=== PATIENT | female | born 2000 | race Caucasian/White ===

== ENCOUNTER 2018-01-21 15:14 | Emergency (ER) | payer BC ==
[2018-01-21 15:25] VITALS: BP 123/82; PULSE 68; RESP 18; TEMP 98.4; O2SAT 99; BMI 28.2
--- NOTE | 2018-01-21 15:56 | C.PDOC ---
History Of Present Illness 17-year-old female, presents to the emergency department with complaints of ankle pain. Patient states she missed a step and injured right lateral ankle at 5:30 AM today. Denies loc, hitting head or neck, nausea or vomiting. No other complaints at this time. Time Seen by Provider: 01/21/18 15:35 Chief Complaint (Nursing): Lower Extremity Problem/Injury History Per: Patient History/Exam Limitations: no limitations Onset/Duration Of Symptoms: Hrs Current Symptoms Are (Timing): Still Present Severity: Moderate Past Medical History Reviewed: Historical Data, Nursing Documentation, Vital Signs Vital Signs: Last Vital Signs Temp 98.4 F 01/21/18 15:24 Pulse 68 01/21/18 15:24 Resp 18 01/21/18 15:24 BP 123/82 01/21/18 15:24 Pulse Ox 99 01/21/18 16:27 Family History: States: No Known Family Hx - Social History Hx Tobacco Use: No Hx Alcohol Use: No Hx Substance Use: No - Immunization History Hx Tetanus Toxoid Vaccination: No Hx Influenza Vaccination: No Hx Pneumococcal Vaccination: No Review Of Systems Constitutional: Negative for: Fever Gastrointestinal: Negative for: Nausea, Vomiting Musculoskeletal: Positive for: Foot Pain (right ankle) Neurological: Negative for: Weakness, Numbness Physical Exam - Physical Exam Appears: Well, No Acute Distress Skin: Normal Color, Warm, Dry, No Rash Head: Atraumatic, Normacephalic Eye(s): bilateral: Normal Inspection Nose: Normal Oral Mucosa: Moist Lips: Normal Appearing Neck: Normal ROM Respiratory: No Accessory Muscle Use (no acute respiratory distress) Extremity: Tenderness, No Pedal Edema, No Calf Tenderness, Capillary Refill (<2 seconds), No Deformity, No Swelling, Other (Tenderness to palpation of right lateral malleolus.) Pulses: Left Dorsalis Pedis: Normal, Right Dorsalis Pedis: Normal Neurological/Psych: Oriented x3, Normal Speech ED Course And Treatment O2 Sat by Pulse Oximetry: 99 (RA) Pulse Ox Interpretation: Normal - Other Rad XR R Ankle X-Ray: Interpreted by Me, Viewed By Me Interpretation: Prelim: Negative for fraxture or dislocation Medical Decision Making Medical Decision Making: Plan: * PO Tylenol * XR R Ankle * Reassess and Disposition Disposition Counseled Patient/Family Regarding: Studies Performed, Diagnosis, Need For Followup, Rx Given - Disposition Referrals: Brian Dolan MD [Staff Provider] - Disposition: HOME/ ROUTINE Disposition Time: 16:22 Condition: STABLE Additional Instructions: FOLLOW UP WITH DR DOLAN NEXT WEEK FOR RE-EVALUATION AND OFFICIAL XRAY REPORT. ICE, REST AND ELEVATION RECOMMENDED. ANKLE BRACE AND CRUTCHES FOR WALKING. IF SYMPTOMS GET WORSE OR ANY NEW CONCERNING SYMPTOMS DEVELOP RETURN TO ED. Prescriptions: Ibuprofen [Motrin Tab] 1 tab PO Q6H PRN #15 tab PRN Reason: Pain, Moderate (4-7) Instructions: Ankle Sprain (ED) Forms: [facility] (Vietnamese), General Discharge Instructions - Clinical Impression Clinical Impression: Ankle sprain - Scribe Statement The provider has reviewed the documentation as recorded by the Scribe (Amber Dolan) All medical record entries made by the Scribe were at my direction and personally dictated by me. I have reviewed the chart and agree that the record accurately reflects my personal performance of the history, physical exam, medical decision making, and the department course for this patient. I have also personally directed, reviewed, and agree with the discharge instructions and disposition.
--- NOTE | 2018-01-21 16:54 | RAD ---
Right ankle three views History: Ankle pain. Comparison: None available. Findings: Lateral malleolar soft tissue swelling. No evidence for acute displaced fracture or dislocation. Impression: Negative acute. If pain persists, consider MRI.
== END 2018-01-21 16:40 | disposition home or self-care (01) ==
LOC: C.ER 15:14
DX: S93.401A Sprain of unspecified ligament of right ankle, initial encounter (principal); X58.XXXA Exposure to other specified factors, initial encounter

== ENCOUNTER 2018-06-27 13:57 | Emergency (ER) | payer BC ==
[2018-06-27 13:57] VITALS: BMI 28.2
[2018-06-27] MEDS ORDERED: Alum-Mag Hydrox-Simethicone Susp (30 mL) PO STA (14:47)
[2018-06-27] MEDS ORDERED: Belladonna-Phenobarbital PO STA (14:48)
--- NOTE | 2018-06-27 14:53 | C.PDOC ---
History Of Present Illness 18 y/o female with no PMHx, presents to the ED with epigastric pain for 5 days. Reports she has had similar pain before, was evaluated, and told symptoms were related to eating greasy foods. She cannot recall eating anything greasy or abnormal prior to onset of current episode. Otherwise patient is tolerating PO. Last bowel movement was today, and was normal. She denies any nausea, vomiting, fever, chills, cough, rashes, or urinary symptoms. States she did not take any medication prior to arrival. LMP was 06/24/18. Time Seen by Provider: 06/27/18 14:27 Chief Complaint (Nursing): Abdominal Pain History Per: Patient History/Exam Limitations: no limitations Onset/Duration Of Symptoms: Days (x5) Current Symptoms Are (Timing): Still Present Location Of Pain/Discomfort: Epigastric Radiation Of Pain To:: None Quality Of Discomfort: "Pain" Associated Symptoms: denies: Vomiting, Diarrhea Past Medical History Reviewed: Historical Data, Nursing Documentation, Vital Signs Vital Signs: Last Vital Signs Temp 98.6 F 06/27/18 14:11 Pulse 66 06/27/18 14:11 Resp 20 06/27/18 14:11 BP 123/72 06/27/18 14:11 Pulse Ox 99 06/27/18 14:11 - Medical History PMH: No Chronic Diseases Surgical History: No Surg Hx Family History: States: Unknown Family Hx - Social History Hx Tobacco Use: No Hx Alcohol Use: No Hx Substance Use: No - Immunization History Hx Tetanus Toxoid Vaccination: No Hx Influenza Vaccination: No Hx Pneumococcal Vaccination: No Review Of Systems Except As Marked, All Systems Reviewed And Found Negative. Constitutional: Negative for: Fever, Chills Respiratory: Negative for: Cough Gastrointestinal: Positive for: Abdominal Pain. Negative for: Nausea, Vomiting, Diarrhea, Constipation Genitourinary: Negative for: Dysuria, Frequency, Hematuria Musculoskeletal: Negative for: Back Pain Skin: Negative for: Rash Physical Exam - Physical Exam Appears: Non-toxic, No Acute Distress Skin: Normal Color, Warm, Dry Head: Atraumatic, Normacephalic Eye(s): bilateral: Normal Inspection, PERRL, EOMI Oral Mucosa: Moist Neck: Normal ROM Cardiovascular: Rhythm Regular, No Murmur Respiratory: Normal Breath Sounds, No Rales, No Rhonchi, No Wheezing Gastrointestinal/Abdominal: Soft, Tenderness (Mild tenderness to the epigastrium), No Guarding, No Rebound Back: No CVA Tenderness Extremity: Bilateral: Atraumatic, Normal Color And Temperature, Normal ROM Neurological/Psych: Oriented x3, Normal Speech ED Course And Treatment - Laboratory Results Result Diagrams: 06/27/18 16:01 06/27/18 16:01 Urine POC: Negative O2 Sat by Pulse Oximetry: 99 (RA) Pulse Ox Interpretation: Normal Progress Note: 15:30 On reassessment, patient reports no improvement. Blood work and UA ordered. 17:00 Discussed normal labs. (+) Blood in the urine pt currently menstruating. Instructed to follow up with PMD in 1-3 days for further evaluation. Medical Decision Making Medical Decision Making: Impression: Epigastric Pain Initial Plan: * POC urine preg * GI cocktail and reassessment Disposition Counseled Patient/Family Regarding: Studies Performed, Diagnosis, Need For Followup - Disposition Referrals: [facility] [Outside] Disposition: HOME/ ROUTINE Disposition Time: 17:00 Condition: STABLE Additional Instructions: LATONYA WHITMAN, thank you for letting us take care of you today. Your provider was Martha Beltran MD and you were treated for STOMACH PAIN. The emergency medical care you received today was directed at your acute symptoms. If you were prescribed any medication, please fill it and take as directed. It may take several days for your symptoms to resolve. Return to the Emergency Department if your symptoms worsen, do not improve, or if you have any other problems. Please contact your doctor or call one of the physicians/clinics you have been referred to that are listed on the Patient Visit Information form that is included in your discharge packet. Bring any paperwork you were given at discharge with you along with any medications you are taking to your follow up visit. Our treatment cannot replace ongoing medical care by a primary care alessio becker outside of the emergency department. Thank you for allowing the [email or web address] team to be part of your care today. Instructions: Acute Abdomen (Belly Pain), Adult (DC) Forms: [employer] [facility] ([place] Islander), General Discharge Instructions - POA Present On Arrival: None - Clinical Impression Clinical Impression: Abdominal pain - Scribe Statement The provider has reviewed the documentation as recorded by the Scribe (Bindu Finn) Provider Attestation: All medical record entries made by the Scribe were at my direction and personally dictated by me. I have reviewed the chart and agree that the record accurately reflects my personal performance of the history, physical exam, medical decision making, and the department course for this patient. I have also personally directed, reviewed, and agree with the discharge instructions and disposition.
[2018-06-27] MEDS ORDERED: Alum-Mag Hydrox-Simethicone Susp (30 mL) ONE (15:02)
[2018-06-27] MEDS ORDERED: Belladonna-Phenobarbital ONE (15:02)
[2018-06-27 15:10] LABS: SQUAMOUS EPITHIAL 5 /hpf (0-5); URINE BILIRUBIN NEGATIVE (NEGATIVE); URINE BLOOD 3+ (NEGATIVE); URINE CLARITY Clear (Clear); URINE COLOR Yellow (YELLOW); URINE GLUCOSE (UA) NORMAL (Normal); URINE LEUKOCYTE ESTERASE NEG Leu/uL (Negative); URINE PROTEIN NEGATIVE (NEGATIVE)
[2018-06-27 16:04] LABS: BASO % 0.3 % (0.0-2.0); EOS % 0.9 % (0.0-4.0); HEMOGLOBIN 13.9 g/dL (11.0-16.0); LYMPH % 17.2 % (20.0-40.0); MEAN CORPUSCULAR HEMOGLOBIN 30.2 pg (27.0-31.0); MEAN CORPUSCULAR HGB CONC 33.5 g/dL (33.0-37.0); MEAN PLATELET VOLUME 7.6 fL (7.2-11.7); MONO # 0.5 K/uL (0.0-0.8); MONO % 9.8 % (0.0-10.0); NEUT % 71.8 % (50.0-75.0); NRBC % 0.1 % (0.0-2.0); RBC 4.59 Mil/uL (3.80-5.20); RED CELL DISTRIBUTION WIDTH 12.7 % (11.5-14.5); WHITE BLOOD COUNT 5.6 K/uL (4.8-10.8)
[2018-06-27 16:27] LABS: ALB/GLOB RATIO 1.1 (1.0-2.1); ALBUMIN 3.7 g/dL (3.5-5.0); BLOOD UREA NITROGEN 10 mg/dL (7-17); CALCIUM 8.2 mg/dl (8.6-10.4); GFR NON-AFRICAN AMERICAN > 60; LIPASE 97 U/L (23-300)
[2018-06-27 16:31] LABS: ALT/SGPT 21 U/L (9-52); AST/SGOT 27 U/L (14-36)
[2018-06-27 17:11] VITALS: RESP 17; TEMP 98.5
[2018-06-27 17:12] VITALS: O2SAT 99
[2018-06-27 17:13] VITALS: BP 95/60; PULSE 67
== END 2018-06-27 17:28 | disposition home or self-care (01) ==
LOC: C.ER 13:57
DX: R10.9 Unspecified abdominal pain (principal)